=== PATIENT | female | born 2000 | race Caucasian/White ===

== ENCOUNTER 2023-07-07 10:25 | Emergency (ER) | payer OTHER, BC, SELFPAY ==
[2023-07-07 10:26] VITALS: BP 118/76
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
[2023-07-07] MEDS: TYLENOL 650 MG PO (11:18)
[2023-07-07 11:34] LABS: HCG, Urine Qualitative Screen Negative
[2023-07-07 14:18] VITALS: BP 121/78
== END 2023-07-07 14:28 | disposition home or self-care (01) ==
LOC: EMR 10:25
PROVIDERS: Physician Assistant; EMERGENCY PHYSICIAN Emergency Medicine; FAMILY PHYSICIAN Family Medicine
DX: S16.1XXA Strain of muscle, fascia and tendon at neck level, initial encounter (principal); V43.52XA Car driver injured in collision with other type car in traffic accident, initial encounter; Z87.891 Personal history of nicotine dependence
CPT/HCPCS: 99284; 70450; 72125; 81025

== ENCOUNTER 2023-11-13 08:20 | Emergency (ER) | payer BC, OTHER, SELFPAY ==
[2023-11-13 08:23] VITALS: BP 120/71
--- NOTE | 2023-11-13 08:50 | ED.MUSCINJ ---
HPI-Injury
<Krista Pedraza MD, Resident - Last Filed: 11/13/23 09:34>
General
Chief Complaint: Musculo-Skeletal Complaint
Time Seen by Provider: 11/13/23 08:30
History of Present Illness-Injury
Is this injury a work related problem?: No
Is pt an associate of [facility]/[place]?: No
Initial Injury comments:
23-year-old female presented to the ED following a fallt. The patient reports that she was walking down the steps when she fell landing on right arm , which was extended and partially flexed. She experiencing pain in her right shoulder. On
physical examination there is pain with abduction of the right at 90 degrees and pain with flexion of the right arm. Despite the pain she has full range of motion with full extension and flexion of the wrist. She denies any weakness.
Past History
<Krista Pedraza MD, Resident - Last Filed: 11/13/23 09:34>
Past History
ED Past Medical History: Psychiatric (Anxiety/depression)
ED Past Surgical History: Tonsilectomy
Social History
Tobacco: Former smoker
Alcohol: Occasional
Drug: Marijuana
Personal: Single
Living: with family
Musculoskeletal Injury Exam
<Krista Pedraza MD, Resident - Last Filed: 11/13/23 09:34>
Musculoskeletal Injury Exam
Right Shoulder:
Pain with Movement?: Moderate
Tender to palpation?: None
Soft tissue swelling?: None
External deformity and angulation?: None
Joint effusion?: None
Contusion?: None
Hematoma-local bleeding into tissue?: None
Strain- Sprain- Tear (Connective tissue injury)?: Moderate
Crepitus with movement?: No
Joint instability?: No
Malalignment/deformity?: No
Range of motion: Limited ( limited range of motion and pain with abduction of the right at 90 degrees, pain with flexion of the right arm. Full range of motion with wrist extension and flexion)
Distal skin color and temperature: normal-warm & good color
Capillary Refill: normal
Normal distal neurovascular exam?: Yes
Phy Exam
<Krista Pedraza MD, Resident - Last Filed: 11/13/23 09:34>
Physical Exam
Physical Exam:
23 year old female, comfortable, conversant.
Musculoskeletal Exam
Musculoskeletal Exam: neuro vasc intact and other (Inspection -no warmth, erythema, ecchymosis. No point tenderness on palpation. Range of motion pain with right shoulder shrugging,)
Injury Course
<Krista Pedraza MD, Resident - Last Filed: 11/13/23 09:34>
Orders/Labs/Results
Orders:
Orders
11/13/23 08:26
Humerus, Right 2 Views [CR Humerus - Right Min 2 View*] Urgent
Comment:
Reason For Exam: fall, pain
Shoulder, Right, Trauma [CR Shoulder, Trauma - Right] Urgent
Comment:
Reason For Exam: fall, pain
11/13/23 09:02
Ibuprofen [Motrin] 600 mg PO NOW STA
<Jessica Morin MD - Last Filed: 11/13/23 09:40>
Orders/Labs/Results
Orders:
Orders
11/13/23 08:26
Humerus, Right 2 Views [CR Humerus - Right Min 2 View*] Urgent
Comment:
Reason For Exam: fall, pain
Shoulder, Right, Trauma [CR Shoulder, Trauma - Right] Urgent
Comment:
Reason For Exam: fall, pain
11/13/23 09:02
Ibuprofen [Motrin] 600 mg PO NOW STA
<Krista Pedraza MD, Resident - Last Filed: 07/22/24 09:34>
*Critical Care Note
Total Time (30-74mins, 75-104mins- exclusive of procedures): Not Applicable
<Jessica Morin MD - Last Filed: 11/13/23 09:40>
*Radiology
Radiology exam reviewed: preliminary read by ED provider (Right shoulder and humeral x-rays reviewed by me. No acute disease seen. No fracture seen. No dislocation)
*Pulse Oximetry
Patient hypoxic: no
*EKG
Interpreted by ED Provider?: NA
*Customer Contact Representative Interpretation
Rate: Customer Contact Representative- N/A
Data Reviewed
Source: patient and family
<Jessica Morin MD - Last Filed: 11/13/23 09:40>
Patient Management
Social determinants of health affecting care: Living situation and Strong social support
<Krista Pedraza MD, Resident - Last Filed: 11/13/23 09:34>
Update Note
Update Note:
23-year-old female presented to ED following a fall right. X-ray of the right humerus and shoulder shows no fractures no dislocations. Suspect ligament strain/ rotator cuff tendinopathy. The plan is to discharge the patient with ibuprofen and
cyclobenzaprine. She is advised to avoid lifting heavy weights or objects, rest and apply ice compression. She should follow-up with her primary care physician in 3 days. The patient also requested a leave from note for 2 days.
ED Attending Note
<Krista Pedraza MD, Resident - Last Filed: 11/13/23 09:34>
-
Portions of this chart may have been created with voice recognition software.� Occasional wrong word or��sound alike� substitutions may have occurred due to the inherent limitations of voice recognition software.
<Jessica Morin MD - Last Filed: 11/13/23 09:40>
ED Attending Note
Patient seen and examined by attending physician: Yes
I performed a history and physical exam of patient and discussed management with resident, I reviewed resident's note and agree with documented findings and plan of care.: Yes
ED Attending Note:
Patient's face and head are atraumatic. Nontender C-spine. Strong pulses and excellent cap refill in right upper extremity.
Discharge Plan
Departure
Patient Disposition: Home (Routine Discharge)
Date of Disposition: 11/13/23
Time of Disposition: 09:27
Patient with high blood pressure during this ER visit?: No
Discharge Problem:
Strain of ligament
Instructions: Muscle Strain (DC)
Prescriptions:
New
ibuprofen 600 mg tablet
600 mg PO TID 7 Days Qty: 21 0RF
cyclobenzaprine 10 mg tablet
10 mg PO HS 10 Days Qty: 10 0RF
No Action
fluoxetine 20 MG capsule
20 mg PO DAILY
norgestimate-ethinyl estradiol [Tri-Lo-Dyan] 1 EACH tablet
1 ea PO DAILY
lisdexamfetamine [Vyvanse] 30 MG capsule
30 mg PO DAILY
pantoprazole 40 MG tablet,delayed release (DR/EC)
40 mg PO DAILY Qty: 30 0RF
ondansetron 4 MG tablet,disintegrating
4 mg PO TIDPRN PRN (Reason: nausea) Qty: 12 0RF
pantoprazole 40 mg tablet,delayed release (DR/EC)
40 mg PO DAILY Qty: 30 0RF
Referrals:
Jaimie Jones, DO [Family Provider] - Follow up in 2-3 days
Stand Alone Forms: Return to Work
Interventions
Interventions:
*Risk Screen - Suicide Last Done: 11/13/23 08:23
*General Assessment Last Done: 11/13/23 08:23
*Neglect/Abuse Screening Last Done: 11/13/23 08:23
ED-Musculoskeletal Assessment Last Done: 11/13/23 09:13
Discharge Date and Time
Print Language: WOLOF
[2023-11-13] MEDS: MOTRIN 600 MG PO (09:11)
[2023-11-13 09:34] VITALS: BP 120/61
== END 2023-11-13 09:41 | disposition home or self-care (01) ==
LOC: EMR 08:20
PROVIDERS: EMERGENCY PHYSICIAN Emergency Medicine; FAMILY PHYSICIAN Family Medicine
DX: S46.911A Strain of unspecified muscle, fascia and tendon at shoulder and upper arm level, right arm, initial encounter (principal); W10.9XXA Fall (on) (from) unspecified stairs and steps, initial encounter; F41.8 Other specified anxiety disorders; Y93.01 Activity, walking, marching and hiking; Z87.891 Personal history of nicotine dependence
CPT/HCPCS: 99283; 73030; 73060

== ENCOUNTER → 2024-03-07 07:51 | Outpatient (REF) | payer OTHER, SELFPAY | LOC: HWRAD 07:51 | PROVIDERS: ATTENDING PHYSICIAN Otolaryngology; FAMILY PHYSICIAN Internal Medicine | DX: R51.9 Headache, unspecified (principal) | CPT/HCPCS: 70486 ==

== ENCOUNTER 2024-03-28 22:55 | Emergency (ER) | payer OTHER, SELFPAY ==
[2024-03-28 23:15] VITALS: BP 108/81
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
[2024-03-29 01:03] VITALS: BP 104/78
== END 2024-03-29 01:13 | disposition home or self-care (01) ==
LOC: EMR 22:55
PROVIDERS: EMERGENCY PHYSICIAN Student in an Organized Health Care Education/Training Program; FAMILY PHYSICIAN Internal Medicine
DX: S63.502A Unspecified sprain of left wrist, initial encounter (principal); S63.92XA Sprain of unspecified part of left wrist and hand, initial encounter; W03.XXXA Other fall on same level due to collision with another person, initial encounter; Z87.891 Personal history of nicotine dependence
CPT/HCPCS: 29125; 99283; 73110; 73130

== ENCOUNTER 2024-06-27 12:58 | Emergency (ER) | payer BC, OTHER, SELFPAY ==
[2024-06-27 13:05] VITALS: BP 153/72
[2024-06-27 13:28] LABS: % Basophils 0.5 % (0-2); % Eosinophils 0.3 % (0-6); % Immature Granulocytes 0.4 % (0-0.5); % Lymphocytes 23.8 % (20.5-51.1); % Monocytes 5.2 % (1.7-9.3); % Neutrophils 69.8 % (42.2-75.2); Absolute Basophils 0.1 10^3/uL (0-0.2); Absolute Lymphocytes 2.4 10^3/uL (1.2-3.4); Absolute Monocytes 0.5 10^3/uL (0.1-0.6); Absolute Neutrophils 7.2 10^3/uL (1.4-6.5); Hematocrit 38.3 % (37.0-47.0); Hemoglobin 13.5 g/dL (12.0-16.0); Mean Corp Hgb Conc. 35.2 g/dL (33.0-37.0); Mean Corpuscular Hgb 28.8 pg (27.0-31.0); Mean Corpuscular Volume 81.7 fL (81.0-99.0); Nucleated Red Blood Cells % 0 %; Platelet Count 264 10^3/uL (130-400); Red Blood Cell Count 4.69 10^6/uL (4.20-5.40); Red Cell Dist. Width 11.7 % (11.5-14.5); Urine Albumin Negative (Neg - Trace); Urine Bilirubin Negative (Negative); Urine Character Clear (Clear); Urine Color Yellow; Urine Glucose Negative (Negative); Urine Ketone Negative (Negative); Urine Leukocyte Negative (Negative); Urine Nitrite Negative (Negative); Urine Occult Blood Negative (Negative); Urine Urobilinogen Negative (Neg - 1+); Urine pH 6.5 (5.0-9.0); White Blood Cell Count 10.3 10^3/uL (4.8-10.8)
[2024-06-27 13:42] LABS: ALT (SGPT) 25 U/L (0-35); AST (SGOT) 24 U/L (14-36); Albumin 4.3 g/dl (3.5-5.0); Alkaline Phosphatase 114 U/L (38-126); Blood Urea Nitrogen 9 mg/dl (7-17); Calcium 9.5 mg/dl (8.4-10.2); Carbon Dioxide 20 mmol/L (22-30); Chloride 104 mmol/L (98-107); Glucose 96 mg/dl (70-99); Potassium 4.2 mmol/L (3.5-5.1); Sodium 135 mmol/L (135-145); Total Bilirubin 0.5 mg/dl (0.2-1.3); Total Protein 6.9 g/dl (6.3-8.2); eGFR > 60.00
[2024-06-27 14:06] LABS: HCG, Serum Qualitative Screen Negative
[2024-06-27 14:40] VITALS: BMI 36.7
--- NOTE | 2024-06-27 15:19 | ED.GENMED ---
History of Present Illness
<Anjali Flores PA-C - Last Filed: 06/27/24 18:53>
General
Chief Complaint: Fever
Source: patient
Exam Limitations: none
Time Seen by Provider: 06/27/24 14:32
History of Present Illness
History of Present Illness:
23yoF with a history of depression and ADHD presenting for evaluation of a fever. Symptoms initially started about 2 weeks ago with dysuria, vaginal discharge, and itching. She was seen by her paediatric thoracic physician on 06/17/2024 for her symptoms. She had
vaginal swabs including a genital culture, yeast culture, and GC/chlamydia testing which were all negative. Urine culture grew out pansensitive E. coli. She was started on Macrobid 3 days ago. She was having some right flank discomfort 3 days ago
before her antibiotics were started. Her right flank pain recurred today and she also spiked a fever of 102.7 via forehead thermometer. She was nauseous earlier but denies any vomiting. She denies any vaginal discharge currently.
Past History
<Anjali Flores PA-C - Last Filed: 06/27/24 18:53>
Past History
ED Past Medical History: Psychiatric (Anxiety/depression)
ED Past Surgical History: Tonsilectomy
Social History
Tobacco: Former smoker
Alcohol: Occasional
Drug: Marijuana
Personal: Single
Living: with family
Phy Exam
<Anjali Flores PA-C - Last Filed: 06/27/24 18:53>
General Physical Exam
General Presentation: well appearing and no apparent distress
General age: appears stated age
General Skin: warm and dry
General Habitus: normal
General Mental: alert
ENT Exam
ENT Exam: normocephalic
Cardiovascular Exam
Cardiovascular Exam: tachycardia
Pulmonary Exam
Pulmonary Exam: lungs clear, no respiratory distress, no rales, no crackles and no rhonchi
Gastrointestinal Exam
Gastrointestinal Exam: soft, non distended and other (+Mild tenderness in suprapubic region. +R CVA tenderness. )
Neurological Exam
Neurological Exam: alert
[place] Coma Scale
Eye Opening: Spontaneous
Verbal Response: Oriented
Motor Response: Obeys Commands
GCS Total Score: 15
Skin Exam
Skin Exam: normal color and warm/dry
Psychiatric Exam
Psychiatric Exam: normal mood/affect
<Rohit Tran PA-C - Last Filed: 06/27/24 17:40>
[place] Coma Scale
GCS Total Score: 15
Course
<Anjali Flores PA-C - Last Filed: 06/27/24 18:53>
Orders/Labs/Results
Orders:
Orders
06/27/24 13:09
Test Result ONCE
06/27/24 13:15
Complete Blood Count/With Diff Urgent
Comprehensive Metabolic Panel Urgent
HCG, Serum Qualitative Screen Urgent
Urinalysis Reflex To Culture Urgent
Date Specimen was Collected: 06/27/24
Time Specimen was Collected: 13:09
06/27/24 15:17
0.9% Sodium Chloride 1000 ml [Nss] 1,000 ml IV BOLUS
06/27/24 15:35
COVID-19 Antigen Urgent
Source: Nasal Swab
Influenza A+B Rapid Molecular Urgent
SANDI Source: Nasal Swab
Specimen Description:
06/27/24 16:49
CT Abd/pelvis W/wo Iv Cont Urgent
Comment: concern for renal stone/pyelonephritis
Reason For Exam: right flank pain
Abnormal Lab Results
06/27/24
13:15
Absolute Neuts (auto) 7.2 H 10^3/uL
(1.4-6.5)
Carbon Dioxide 20 L mmol/L
(22-30)
06/27/24 13:15
06/27/24 13:15
Vital Signs
Initial and Last Documented VS:
Initial Vital Signs
Temp Pulse Resp BP Pulse Ox
98.2 F 117 16 153/72 98
06/27/24 13:05 06/27/24 13:05 06/27/24 13:05 06/27/24 13:05 06/27/24 13:05
Last Documented Vital Signs
Temp Pulse Resp BP Pulse Ox
98.1 F 117 16 153/72 98
06/27/24 14:39 06/27/24 13:05 06/27/24 13:05 06/27/24 13:05 06/27/24 13:05
<Rohit Tran PA-C - Last Filed: 06/27/24 17:40>
Orders/Labs/Results
Orders:
Orders
06/27/24 13:09
Test Result ONCE
06/27/24 13:15
Complete Blood Count/With Diff Urgent
Comprehensive Metabolic Panel Urgent
HCG, Serum Qualitative Screen Urgent
Urinalysis Reflex To Culture Urgent
Date Specimen was Collected: 06/27/24
Time Specimen was Collected: 13:09
06/27/24 15:17
0.9% Sodium Chloride 1000 ml [Nss] 1,000 ml IV BOLUS
06/27/24 15:35
COVID-19 Antigen Urgent
Source: Nasal Swab
Influenza A+B Rapid Molecular Urgent
SANDI Source: Nasal Swab
Specimen Description:
06/27/24 16:49
CT Abd/pelvis W/wo Iv Cont Urgent
Comment: concern for renal stone/pyelonephritis
Reason For Exam: right flank pain
Abnormal Lab Results
06/27/24
13:15
Absolute Neuts (auto) 7.2 H 10^3/uL
(1.4-6.5)
Carbon Dioxide 20 L mmol/L
(22-30)
06/27/24 13:15
06/27/24 13:15
Vital Signs
Initial and Last Documented VS:
Initial Vital Signs
Temp Pulse Resp BP Pulse Ox
98.2 F 117 16 153/72 98
06/27/24 13:05 06/27/24 13:05 06/27/24 13:05 06/27/24 13:05 06/27/24 13:05
Last Documented Vital Signs
Temp Pulse Resp BP Pulse Ox
98.1 F 117 16 153/72 98
06/27/24 14:39 06/27/24 13:05 06/27/24 13:05 06/27/24 13:05 06/27/24 13:05
<Anjali Flores PA-C - Last Filed: 06/27/24 18:53>
MDM/Problems Addressed
Differential Diagnosis Includes:
23yoF here with R flank pain and fever of 102.7 at home. Currently on day 3/ of Macrobid for a UTI. Urine culture from last week grew out pansensitive E.coli (reviewed results on patient's phone). Temp 98.2 on arrival and she did not take any
antipyretics prior to arrival. HR 117. She is well appearing in no distress. +R CVA tenderness on exam. Differential diagnosis includes but is not limited to: UTI, pyelonephritis, kidney stone
Initial ED plan: Labs and UA obtained in triage. White count and renal function normal. UA is normal although results may be skewed as she has been on the abx for a few days. Will check COVID/flu swab and CT abdomen. IV fluid bolus.
Final assessment: Viral testing negative. No hydronephrosis or stones seen on my review of CT. Patient signed out to Archie Tran PA-C prior to CT results. Will plan to switch to an antibiotic that will cover pyelonephritis.
<Rohit Tran PA-C - Last Filed: 06/27/24 17:40>
*Critical Care Note
Total Time (30-74mins, 75-104mins- exclusive of procedures): Not Applicable
<Rohit Tran PA-C - Last Filed: 06/27/24 17:40>
Update Note
Update Note:
1705: Assumed care of pt from Anjali Flores PA-C pending CT report.
1735: Reviewed CT, unremarkable. Will switch from nitrofurantoin to cefdinir for more appropriate pyelo coverage. Pt in agreement w/ plan
ED Attending Note
<Anjali Flores PA-C - Last Filed: 06/27/24 18:53>
-
Portions of this chart may have been created with voice recognition software.� Occasional wrong word or��sound alike� substitutions may have occurred due to the inherent limitations of voice recognition software.
Discharge Plan
Departure
Patient Disposition: Home (Routine Discharge)
Date of Disposition: 06/27/24
Time of Disposition: 17:38
Patient with high blood pressure during this ER visit?: No
Discharge Problem:
Pyelonephritis
Instructions: Urinary tract infection in adults - ED discharge instructions
Prescriptions:
New
cefdinir 300 mg capsule
300 mg PO Q12H Qty: 14 0RF
No Action
fluoxetine 20 MG capsule
20 mg PO DAILY
norgestimate-ethinyl estradiol [Tri-Lo-Dyan] 1 EACH tablet
1 ea PO DAILY
lisdexamfetamine [Vyvanse] 30 MG capsule
30 mg PO DAILY
pantoprazole 40 MG tablet,delayed release (DR/EC)
40 mg PO DAILY Qty: 30 0RF
ondansetron 4 MG tablet,disintegrating
4 mg PO TIDPRN PRN (Reason: nausea) Qty: 12 0RF
pantoprazole 40 mg tablet,delayed release (DR/EC)
40 mg PO DAILY Qty: 30 0RF
ibuprofen 600 mg tablet
600 mg PO TID 7 Days Qty: 21 0RF
cyclobenzaprine 10 mg tablet
10 mg PO HS 10 Days Qty: 10 0RF
Referrals:
Jaimie Jones, DO [Family Provider] -
Activity Restrictions/Additional Instructions:
Stop the nitrofurantoin and start the cefdinir
Interventions
Interventions:
*Risk Screen - Suicide Last Done: 06/27/24 13:08
*General Assessment Last Done: 06/27/24 14:41
*Neglect/Abuse Screening Last Done: 06/27/24 13:08
*ED- Fall Risk Assessment Last Done: 06/27/24 14:40
*ED COVID-19 Vaccine History Last Done: 06/27/24 14:40
*Nursing Disposition Last Done: 06/27/24 18:27
ED- Neurological Assessment Last Done: 06/27/24 14:43
ED-Skin Assessment Last Done: 06/27/24 14:43
Discharge Date and Time
Discharge Date/Time: 06/27/24 18:34
Print Language: BOLIVIAN
[2024-06-27 16:02] LABS: COVID-19 Antigen Negative (Negative)
[2024-06-27] MEDS: NSS 1000 IV (16:04)
== END 2024-06-27 18:34 | disposition home or self-care (01) ==
LOC: EMR 12:58
PROVIDERS: Physician Assistant; EMERGENCY PHYSICIAN Emergency Medicine; FAMILY PHYSICIAN Family Medicine
DX: N12 Tubulo-interstitial nephritis, not specified as acute or chronic (principal); F90.9 Attention-deficit hyperactivity disorder, unspecified type; F41.8 Other specified anxiety disorders; Z87.891 Personal history of nicotine dependence
CPT/HCPCS: 99284; 74178; 80053; 81003; 84703; 85025; 87502; 87811; Q9967

== ENCOUNTER 2024-07-04 23:46 | Inpatient (IN) | payer BC, OTHER, SELFPAY ==
[2024-07-04 16:37] VITALS: BP 136/89
[2024-07-04 17:17] LABS: % Basophils 0.4 % (0-2); % Eosinophils 0.3 % (0-6); % Immature Granulocytes 0.3 % (0-0.5); % Lymphocytes 21.7 % (20.5-51.1); % Neutrophils 72.3 % (42.2-75.2); Absolute Basophils 0.1 10^3/uL (0-0.2); Absolute Eosinophils 0.1 10^3/uL (0-0.7); Absolute Immature Granulocytes 0.1 10^3/uL (0-0.05); Absolute Lymphocytes 3.2 10^3/uL (1.2-3.4); Absolute Monocytes 0.7 10^3/uL (0.1-0.6); Absolute Neutrophils 10.7 10^3/uL (1.4-6.5); Hematocrit 39.9 % (37.0-47.0); Hemoglobin 14.1 g/dL (12.0-16.0); Mean Corp Hgb Conc. 35.3 g/dL (33.0-37.0); Mean Corpuscular Hgb 28.6 pg (27.0-31.0); Mean Corpuscular Volume 80.9 fL (81.0-99.0); Mean Platelet Volume 9.2 fL (7.4-10.4); Nucleated Red Blood Cells % 0 %; Platelet Count 332 10^3/uL (130-400); Red Blood Cell Count 4.93 10^6/uL (4.20-5.40); Red Cell Dist. Width 11.9 % (11.5-14.5); White Blood Cell Count 14.7 10^3/uL (4.8-10.8)
[2024-07-04 17:17] LABS: Urine Albumin Negative (Neg - Trace); Urine Bilirubin Negative (Negative); Urine Character Clear (Clear); Urine Color Yellow; Urine Glucose Negative (Negative); Urine Ketone Negative (Negative); Urine Leukocyte Negative (Negative); Urine Nitrite Negative (Negative); Urine Occult Blood Negative (Negative); Urine Urobilinogen Negative (Neg - 1+); Urine pH 6.5 (5.0-9.0)
[2024-07-04 17:27] LABS: HCG, Serum Qualitative Screen Negative
[2024-07-04 17:27] LABS: Lactic Acid 1.2 mmol/L (0.7-2.0)
[2024-07-04 17:32] LABS: ALT (SGPT) 19 U/L (0-35); AST (SGOT) 20 U/L (14-36); Albumin 4.9 g/dl (3.5-5.0); Alkaline Phosphatase 111 U/L (38-126); Blood Urea Nitrogen 9 mg/dl (7-17); Calcium 9.8 mg/dl (8.4-10.2); Carbon Dioxide 23 mmol/L (22-30); Chloride 101 mmol/L (98-107); Glucose 81 mg/dl (70-99); Potassium 4.2 mmol/L (3.5-5.1); Sodium 136 mmol/L (135-145); Total Bilirubin 0.6 mg/dl (0.2-1.3); Total Protein 7.4 g/dl (6.3-8.2); eGFR > 60.00
[2024-07-04] MEDS: TORADOL 15 MG IV (20:12)
[2024-07-04] MEDS: NSS 1000 IV (20:12)
--- NOTE | 2024-07-04 22:40 | ED.GENMED ---
History of Present Illness
General
Chief Complaint: Flank Pain
Source: patient
Exam Limitations: none
Time Seen by Provider: 07/04/24 17:47
Nursing documentation reviewed up to this point in time: agreed with
History of Present Illness
History of Present Illness:
Patient presents to ED secondary to recurrent right flank/back pain, along with fever and 1 vomiting episode this afternoon. Patient was seen in ED 1 week ago and was treated for pyelonephritis and started on Omnicef, which was completed yesterday.
Patient states that while she was on antibiotics, she did feel better. Of note, prior to presentation ED 1 week ago, patient was evaluated by her employment adjudicator where she received normal pelvic exam but urinalysis did reveal infection and was
started on Macrobid x 3 days. Denies abdominal pain. Denies diarrhea. Denies trauma. Denies loss of sensation or weakness. Patient does also report mild shortness of breath.
Past History
Past History
ED Past Medical History: Psychiatric (Anxiety/depression)
ED Past Surgical History: Tonsilectomy
Social History
Tobacco: Former smoker
Alcohol: Occasional
Drug: Marijuana
Personal: Single
Living: with family
Review of Systems
Review of Systems
Allergies reviewed?: Yes
All Other Systems: ROS reviewed and negative except as documented in HPI and ROS
Constitutional: Reports fever and chills
EENT: Reports no symptoms
Respiratory: Reports trouble breathing
Cardiac: Reports no symptoms
ABD/GI: Reports nausea and vomiting; Denies abdominal pain
: Reports flank pain
Musculoskeletal: Reports back pain
Skin: Reports no symptoms
Neurological: Reports no symptoms
Phy Exam
Physical Exam
Physical Exam:
Physical Exam
General: mild distress, not acutely ill. afebrile. tachycardic
Head: nc/at. eomi
Neck: supple. normal range of motion
Heart: s1/s2 regular rhythm, tachycardic, no murmur.
Lungs: no acute respiratory distress. clear bilaterally
Abdomen: normal bowel sounds. not tender. mild right CVA tenderness to palpation.
Neuro: alert and oriented x 3. no focal neurological deficits
Skin: no rash
Psychiatric: well kept. interactive and cooperative
Extremities: no edema. no calf tenderness.
Course
Orders/Labs/Results
Orders:
Orders
07/04/24 16:41
Electrocardiogram (*1) Urgent
Reason for Study: Shortness of Breath
EKG- Treatment ONCE
Test Result ONCE
07/04/24 16:59
Lactic Acid Urgent
Urinalysis Reflex To Culture Urgent
Date Specimen was Collected: 07/04/24
Time Specimen was Collected: 16:41
Blood Culture Urgent
SANDI Source: Blood/Venous
Specimen Description:
Date Specimen was Collected: 07/04/24
Time Specimen was Collected: 16:41
Urine Culture Urgent
SANDI Source: U
Specimen Description:
Date Specimen was Collected: 07/04/24
Time Specimen was Collected: 16:41
07/04/24 17:00
Complete Blood Count/With Diff Urgent
Comprehensive Metabolic Panel Urgent
HCG, Serum Qualitative Screen Urgent
07/04/24 19:36
0.9% Sodium Chloride 1000 ml [Nss] 1,000 ml IV BOLUS
Ketorolac [Toradol] 15 mg IV NOW STA
07/04/24 19:49
D-Dimer Urgent
Blood Culture Urgent
SANDI Source: Blood/Venous
Specimen Description:
07/04/24 22:36
CefTRIAXone [Rocephin] 1,000 mg IV NOW STA
07/04/24 23:46
Admit/Transfer Patient As Directed
Co-Sign Provider:
Level of Care: Inpatient admission
Assign to:: Medical/Surgical
Physician / Group: Dianne Romero
Diagnosis: sepsis, Pyelonephritis
Reason for Hospitalization: sepsis, Pyelonephritis
Expected length of stay greater than two midnights?: Yes
ELOS- Estimated Length of Stay in days: 3
I certify the patient meets the requirements for IP care: Yes
PRN Pain Medication Management As Directed
May give lesser potent ordered pain med per pt: Yes
preference::
Protocol:: Medication orders for pain may be administered in a
manner that supports deferring to patient preference
when the pt is:
- Requesting an ordered lesser potent pain medication.
Least to most potent pain medications are defined
as: acetaminophen < NSAID < tramadol < opioids
(morphine, oxycodone, hydromorphone).
- Requesting a lesser dose of the same medication IF
ORDERED.
- Requesting a less intrusive route of administration
if both routes are prescribed by the provider (PO <
IV).
07/04/24 23:48
Code Status As Directed
Resuscitation Status: Full Code
07/05/24 01:51
Acetaminophen [Tylenol] 650 mg PO Q4HPRN PRN
07/05/24 01:51
Activity As Directed
Activity Level: Ambulate
Chart Request [Obtain Records] As Directed
Dates of Information to be Released: 06/24/2024
Type of Information Requested: Lab Results
Obtain Records from: [facility]
Vital Signs As Directed
Frequency: Per unit guidelines
Weight As Directed
Frequency: Once
Renal & Bladder US [US Renal With Bladder] Routine
Comment:
Reason For Exam: Pyelonephritis, failed outpatient ABX
DX Deep Vein Thrombosis Video Routine
07/05/24 07:58
Basic Metabolic Panel IN AM
Complete Blood Count/No Diff IN AM
07/05/24 08:00
Fluoxetine HCl [Prozac] 60 mg PO DAILY
norgestimate-ethinyl estradiol [Tri-Lo-Dyan] See Dose Instructions PO DAILY
07/05/24 18:00
Enoxaparin Sodium [Lovenox] 40 mg SC QPM
07/06/24 00:00
CefTRIAXone [Rocephin] 1,000 mg IV Q24H
Abnormal Lab Results
07/04/24
17:00
WBC 14.7 H 10^3/uL
(4.8-10.8)
MCV 80.9 L fL
(81.0-99.0)
Abs Immat Gran (auto) 0.1 H 10^3/uL
(0-0.05)
Absolute Neuts (auto) 10.7 H 10^3/uL
(1.4-6.5)
Absolute Monos (auto) 0.7 H 10^3/uL
(0.1-0.6)
07/04/24 17:00
07/04/24 17:00
Vital Signs
Initial and Last Documented VS:
Initial Vital Signs
Temp Pulse Resp BP Pulse Ox
98.5 F 124 18 136/89 97
07/04/24 16:37 07/04/24 16:37 07/04/24 16:37 07/04/24 16:37 07/04/24 16:37
Last Documented Vital Signs
Temp Pulse Resp BP Pulse Ox
98.1 F 75 16 110/62 98
07/06/24 07:40 07/06/24 07:40 07/06/24 07:40 07/06/24 07:40 07/06/24 07:40
MDM/Problems Addressed
MDM/Problems Addressed:
History, exam, along with blood work as well as vital signs, concerning for sepsis, likely secondary to incompletely treated pyelonephritis, with concern for potential development of bacteremia. Urinalysis today likely difficult to interpret, as
patient has completed 2 antibiotics recently. Rocephin given.
Blood culture pending. Urine culture pending.
*Critical Care Note
Total Time (30-74mins, 75-104mins- exclusive of procedures): Not Applicable
ED Attending Note
-
Portions of this chart may have been created with voice recognition software.� Occasional wrong word or��sound alike� substitutions may have occurred due to the inherent limitations of voice recognition software.
Discharge Plan
Departure
Patient Disposition: Admit
Date of Disposition: 07/04/24
Time of Disposition: 22:45
Admit to: Med/Surg
Presentation/result/management discussed w/ accepting MD/DO: Hospitalist
Discharge Problem:
Sepsis, Pyelonephritis
Interventions
Interventions:
*Risk Screen - Suicide Last Done: 07/05/24 02:51
*General Assessment Last Done: 07/04/24 16:37
*Neglect/Abuse Screening Last Done: 07/04/24 16:37
*ED- Fall Risk Assessment Last Done: 07/04/24 20:21
*ED COVID-19 Vaccine History Last Done: 07/05/24 02:43
*Nursing Disposition Last Done: 07/05/24 01:36
[place]-[facility]-Mhietbybzz Assessment Last Done: 07/04/24 20:14
ED-Female Genitourinary Assessment Last Done: 07/04/24 20:14
Discharge Date and Time
Discharge Date/Time: 07/05/24 01:36
[2024-07-04] MEDS: ROCEPHIN 1000 MG IV (23:07)
--- NOTE | 2024-07-04 23:14 | HPS.HSE ---
Family Physician
-
Family Physician: Jaimie Jones
Chief Complaint
-
right flank/back pain
History of Present Illness
Patient is a 23-year-old female with past medical history significant for anxiety/depression who presented to [facility] ED for evaluation of right flank/back pain. Patient was in ED on 06/27/2024 for right back and flank pain, diagnosed
with paranephritis and treated with Omnicef which was completed yesterday. Prior to ED visit she was seen at caisson worker office and prescribed Macrobid for UTI, she stopped Macrobid early r/t paranephritis diagnosis and new antibiotic. Patient states she
was feeling better while on antibiotics but had a return of right flank and back pain today. She states she did have a fever prior to coming for evaluation today with associated nausea and vomiting. She denies any chills, cough, chest pain,
constipation, diarrhea or urinary symptoms.
Medical History
Past Medical History
Past Medical History: Reports Other
Additional Past Medical History:
anxiety/depression
ADD
Past Surgical History: Reports Other
Additional Past Surgical History:
Ear Tubes
Deviated septum Repair
Tonsillectomy
Social History
Tobacco: Former Smoker (quit 1 year ago )
Alcohol: Occasional
Drug: Marijuana (smokes medical marijuana occasionally )
Personal: Single
Living: With Family
Employment: Employed
Family History
Family History: Other (Father: MDS)
Allergies / Home Medications
Allergies reflects when Allergies were last updated in [employer].
Home Medications with original date entered in [employer]
Allergy/Medication List:
Allergies
Allergy/AdvReac Type Severity Reaction Status Date / Time
hydroxychloroquine AdvReac Mild Nausea / Verified 06/27/24 13:08
Vomiting
Home Medications
fluoxetine 20 mg capsule 60 mg PO DAILY 02/07/21
lisdexamfetamine 30 mg capsule (Vyvanse) 40 mg PO DAILY 02/07/21
norgestimate 0.18 mg/0.215 mg/0.25 mg-ethinyl estradiol 25 mcg tablet (Tri-Lo-Dyan) 1 ea PO DAILY 02/07/21
Review of Systems
-
History Source: Patient
Constitutional: Reports Fever
EENT: Reports No Symptoms
Respiratory: Reports No Symptoms
Cardiac: Reports No Symptoms
Abdomen/GI: Reports Nausea and Vomiting
: Reports Flank Pain
Musculoskeletal: Reports No Symptoms
Skin: Reports No Symptoms
Neurological: Reports No Symptoms
Endocrine: Reports No Symptoms
Hematologic/Lymphatic: Reports No Symptoms
Psych: Reports No Symptoms
Physical Exam
Vital Signs
Vital Signs
Temp Pulse Resp BP Pulse Ox
98.5 F 82 20 136/89 99
07/04/24 16:37 07/04/24 21:15 07/04/24 21:15 07/04/24 16:37 07/04/24 21:15
Physical Exam
General: Well Developed, Well Nourished, No Apparent Distress, Comfortable and Conversant
HEENT: NormoCephalic, Moist mucous membranes, Atraumatic, [place] Conjunctivae, Nose Appears Normal and Ears Appear Normal
Respiratory: Clear and Non Labored Respirations
Cardiac: S1/S2, Regular Rhythm and Tachycardia; No Murmur, Rub or Gallop
GI: Soft, Non Tender, Non Distended and Normal Bowel Sounds; No Organomegaly
Rectal: Deferred by Provider
Genito-urinary: Deferred by me
Musculoskeletal: No Clubbing, No Cyanosis and No Edema
Skin: IV/Catheter Site; No Rash
Neuro: Awake, Alert and Nonfocal/grossly intact
Psych: Calm and Intact Judgment/Insight
Laboratory Results
-
07/04/24 17:00
07/04/24 17:00
Laboratory Results
Lactic Acid 1.2 mmol/L (0.7-2.0) 07/04/24 16:59
Total Bilirubin 0.6 mg/dl (0.2-1.3) 07/04/24 17:00
AST 20 U/L (14-36) 07/04/24 17:00
ALT 19 U/L (0-35) 07/04/24 17:00
Alkaline Phosphatase 111 U/L (38-126) 07/04/24 17:00
Data Reviewed
-
Lab Data: Labs Reviewed by me (WBC 14.7, )
Impression/Plan
-
IMPRESSION/PLAN:
#sepsis 2/2 pyelonephritis
Patient seen 06/27/2024 in ED treated with Omnicef completed yesterday (07/03/2024)
Patient seen by caisson worker with normal pelvic exam and UA indicated UTI so treated with Macrobid x3 days
WBC 14.7, febrile at home
UA: not indicative of UTI (did complete 2 antibiotics recently)
UA C&S: pending
blood cx: pending
Abd/Pel CT (06/27/2024): No convincing evidence for urinary tract calculi.
There is no CT evidence for pyelonephritis or renal abscess.
Mild fatty infiltration the liver.
Contracted gallbladder with no evidence for calcified gallstones. No evidence for biliary ductal dilation.
- Admit to med/surg
- IV antibiotics
- supportive care
- renal US
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
#anxiety/depression
- continue fluoxetine
#ADD
- continue Vyvanse
Code status: full code
DVT prophylaxis: SCDs
--- NOTE | 2024-07-04 23:28 | W.PN.UPDATE ---
Update Note
Progress Note Update
This is an addendum to H&P written by GUT PULLER Yesi Quan
I saw and examined the patient.
The GUT PULLER's note was reviewed and I agree with the note.
Comment:
Ms. Marian Lopez is a 23 yo woman with hx depression, recent treatment of UTI followed by ER visit 06/27/24 for pyelonephritis (abx changed from Macrobid to Cefdinir) presents to the ER with recurrent flank pain/ back pain, fever and vomiting.
Triage VS: T 98.5, P 124, RR 18, BP 136/89, SpO2 97%
LABS: WBC 14.7, Hg 14.1, PLT 332, Na 136, K+ 4.2, Cl 101, BUN 9, Cr 0.6, Glucose 81, Lactate 1.2, T. Bili 0.6, AST 20, ALT 19, Alk Phos [address] A/P from 06/27/24
IMPRESSION: No convincing evidence for urinary tract calculi.
There is no CT evidence for pyelonephritis or renal abscess.
Mild fatty infiltration the liver.
Contracted gallbladder with no evidence for calcified gallstones. No evidence for biliary ductal dilation.
MAR: IV Ceftriaxone, Toradol IVF
Sepsis - leukocytosis with reported fever at home
Recent treatment UTI followed by treatment for Pyelonephritis
Flank Pain
-UA clear but patient just completed antibiotics with Cefdinir. Her UA was positive prior to starting Macrobid; then was also clear last ER visit. Per patient, her symptoms felt better on Cefdinir. Possible that she has partially treatment pyelo
resulting in clear UA
-will admit to med/surg
-IV Ceftriaxone
-IVF
-request records from outpatient [employer] DEVELOPER to see what first urine culture showed
-renal US
-monitor fever/WBC curve
Depression
-SECONDARY EDUCATION PROFESSOR Fluoxetine
DVT PPx lovenox subQ
FULL CODE
[2024-07-05 02:02] VITALS: BP 113/71
[2024-07-05 07:40] VITALS: BP 107/68
[2024-07-05] MEDS: PROZAC 60 MG PO (08:27)
[2024-07-05 08:29] LABS: Hematocrit 37.3 % (37.0-47.0); Hemoglobin 13.2 g/dL (12.0-16.0); Mean Corp Hgb Conc. 35.4 g/dL (33.0-37.0); Mean Corpuscular Hgb 29.1 pg (27.0-31.0); Mean Corpuscular Volume 82.2 fL (81.0-99.0); Mean Platelet Volume 9.5 fL (7.4-10.4); Platelet Count 269 10^3/uL (130-400); Red Blood Cell Count 4.54 10^6/uL (4.20-5.40); White Blood Cell Count 9.1 10^3/uL (4.8-10.8)
[2024-07-05 09:39] LABS: Blood Urea Nitrogen 7 mg/dl (7-17); Calcium 8.9 mg/dl (8.4-10.2); Carbon Dioxide 19 mmol/L (22-30); Chloride 108 mmol/L (98-107); Glucose 83 mg/dl (70-99); Potassium 4.4 mmol/L (3.5-5.1); Sodium 137 mmol/L (135-145); eGFR > 60.00
--- NOTE | 2024-07-05 12:28 | W.PN.HOSP.TC ---
Today's Communication/Plan
-
monitor vitals
see plan
trial of pyridium
cw abx
follow cx
Assessment / Plan
Assessment / Plan
General: Well Developed, Well Nourished, No Apparent Distress, Comfortable and Conversant
HEENT: NormoCephalic, Moist mucous membranes, Atraumatic, [place] Conjunctivae, Nose Appears Normal and Ears Appear Normal
Respiratory: Clear and Non Labored Respirations
Cardiac: S1/S2, Regular Rhythm and Tachycardia; No Murmur, Rub or Gallop
GI: Soft, Non Tender, Non Distended and Normal Bowel Sounds
Musculoskeletal: No Edema
Skin: IV/Catheter Site; No Rash
Neuro: Awake, Alert and Nonfocal/grossly intact
Psych: Calm and Intact Judgment/Insight
sepsis 2/2 suspected pyelonephritis
Patient seen 06/27/2024 in ED treated with Omnicef completed yesterday (07/03/2024)
Patient seen by oil and gas superintendent with normal pelvic exam and UA indicated UTI so treated with Macrobid x3 days for pansensitive E. coli
WBC 14.7, febrile at home
UA: not indicative of UTI (did complete 2 antibiotics recently)
UA C&S: pending
blood cx: pending
Abd/Pel CT (06/27/2024): No convincing evidence for urinary tract calculi.
There is no CT evidence for pyelonephritis or renal abscess.
Mild fatty infiltration the liver.
Contracted gallbladder with no evidence for calcified gallstones. No evidence for biliary ductal dilation.
- IV antibiotics
- supportive care
- renal US with questionable small debris.
- request LINE LOCATOR records
Per patient she has significant dysuria
trial of Pyridium
anxiety/depression
- continue fluoxetine
ADD
- continue Vyvanse
Code status: full code
DVT prophylaxis: SCDs
Anticipated Discharge: Within 24 hours
Subjective/Interval History
-
Date of Service: July 05, 2024
still has pain on right
Objective Data
-
Labs:
Laboratory Results
07/05/24
07:58
WBC 9.1
Hgb 13.2
Hct 37.3
Plt Count 269
Sodium 137
Potassium 4.4
Chloride 108 H
Carbon Dioxide 19 L
BUN 7
Creatinine 0.6
Glucose 83
Calcium 8.9
Vital Signs:
Vital Signs
Temp Pulse Resp BP Pulse Ox
99 F 84 16 107/68 97
07/05/24 07:40 07/05/24 07:40 07/05/24 07:40 07/05/24 07:40 07/05/24 07:40
[2024-07-05] MEDS: Pyridium 100 MG PO ×2 (13:21→18:44)
[2024-07-05 15:22] VITALS: BP 104/60
[2024-07-05] MEDS: TYLENOL 650 MG PO ×2 (15:51→21:28)
--- NOTE | 2024-07-05 18:09 | CM ---
Met with patient to obtain information for assessment. Patient stated that she lives with her mother and father in a two story home with one step to enter. She is independent with all of her ADLs, personal care, dressing and bathing, She can do
disability counselor, cook, clean and do laundry. She has no DME. She has never had VN or been to a SNF.
She has a prescription plan and uses, [facility] for all of her medications.
Patient's PCP is, Jaimie Jones.
Plan: Case management will continue to follow and assist with discharge planning. Home when cleared.
[2024-07-05 22:59] VITALS: BP 104/57
[2024-07-06] MEDS: STERILE WATER FOR INJECTION 10 ML IV (00:14)
[2024-07-06] MEDS: ROCEPHIN 1000 MG IV (00:14)
[2024-07-06] MEDS: Pyridium 100 MG PO (00:14)
[2024-07-06 07:40] VITALS: BP 110/62
[2024-07-06 08:00] LABS: % Basophils 0.4 % (0-2); % Eosinophils 0.7 % (0-6); % Immature Granulocytes 0.6 % (0-0.5); % Lymphocytes 25.9 % (20.5-51.1); % Monocytes 5.5 % (1.7-9.3); % Neutrophils 66.9 % (42.2-75.2); Absolute Eosinophils 0.1 10^3/uL (0-0.7); Absolute Immature Granulocytes 0.1 10^3/uL (0-0.05); Absolute Lymphocytes 2.1 10^3/uL (1.2-3.4); Absolute Monocytes 0.5 10^3/uL (0.1-0.6); Absolute Neutrophils 5.5 10^3/uL (1.4-6.5); Hematocrit 40.9 % (37.0-47.0); Mean Corp Hgb Conc. 34.2 g/dL (33.0-37.0); Mean Corpuscular Hgb 28.4 pg (27.0-31.0); Nucleated Red Blood Cells % 0 %; Red Blood Cell Count 4.93 10^6/uL (4.20-5.40); White Blood Cell Count 8.2 10^3/uL (4.8-10.8)
[2024-07-06 08:23] LABS: ALT (SGPT) 17 U/L (0-35); AST (SGOT) 20 U/L (14-36); Albumin 4.4 g/dl (3.5-5.0); Alkaline Phosphatase 104 U/L (38-126); Blood Urea Nitrogen 13 mg/dl (7-17); Calcium 9.4 mg/dl (8.4-10.2); Carbon Dioxide 20 mmol/L (22-30); Chloride 104 mmol/L (98-107); Estimated Creatinine Clearance > 125 ml/min; Glucose 86 mg/dl (70-99); Potassium 4.4 mmol/L (3.5-5.1); Sodium 136 mmol/L (135-145); Total Bilirubin 0.6 mg/dl (0.2-1.3); Total Protein 6.8 g/dl (6.3-8.2); eGFR > 60.00
[2024-07-06] MEDS: PROZAC 60 MG PO (09:37)
--- NOTE | 2024-07-06 11:26 | W.PN.HOSP.TC ---
Today's Communication/Plan
-
Monitor vitals
See plan
Switch to p.o. antibiotics on discharge
Time of discharge 36 minutes
Assessment / Plan
Assessment / Plan
General: Well Developed, Well Nourished, No Apparent Distress, Comfortable and Conversant
HEENT: NormoCephalic, Moist mucous membranes, Atraumatic, [place] Conjunctivae
Respiratory: Clear and Non Labored Respirations
Cardiac: S1/S2, Regular Rhythm and Tachycardia; No Murmur, Rub or Gallop
GI: Soft, Non Tender, Non Distended and Normal Bowel Sounds
Musculoskeletal: No Edema
Skin: IV/Catheter Site; No Rash
Neuro: Awake, Alert and Nonfocal/grossly intact
Psych: Calm and Intact Judgment/Insight
sepsis 2/2 suspected pyelonephritis
Patient seen 06/27/2024 in ED treated with Omnicef completed yesterday (07/03/2024)
Patient seen by source water protection specialist with normal pelvic exam and UA indicated UTI so treated with Macrobid x3 days for pansensitive E. coli
WBC 14.7, febrile at home
UA: not indicative of UTI (did complete 2 antibiotics recently)
Urine culture growing coag negative staph, likely contaminant. Blood culture negative so far. Discussed with patient that she needs to follow-up with her primary care physician and gynecology outpatient. Will transition her antibiotics to p.o.
cefdinir for few days
Abd/Pel CT (06/27/2024): No convincing evidence for urinary tract calculi.
There is no CT evidence for pyelonephritis or renal abscess.
Mild fatty infiltration the liver.
Contracted gallbladder with no evidence for calcified gallstones. No evidence for biliary ductal dilation.
Transition to p.o. antibiotic
- supportive care
- renal US with questionable small debris.
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
Per patient she has significant dysuria
trial of Pyridium
anxiety/depression
- continue fluoxetine
ADD
- continue Vyvanse
Code status: full code
DVT prophylaxis: SCDs
Anticipated Discharge: Today
Subjective/Interval History
-
Date of Service: July 06, 2024
denies pain
Objective Data
-
Labs:
Laboratory Results
07/06/24
07:08
WBC 8.2
Hgb 14.0
Hct 40.9
Plt Count
Sodium 136
Potassium 4.4
Chloride 104
Carbon Dioxide 20 L
BUN 13
Creatinine 0.6
Glucose 86
Calcium 9.4
Total Bilirubin 0.6
AST 20
ALT 17
Alkaline Phosphatase 104
Vital Signs:
Vital Signs
Temp Pulse Resp BP Pulse Ox
98.1 F 75 16 110/62 98
07/06/24 07:40 07/06/24 07:40 07/06/24 07:40 07/06/24 07:40 07/06/24 07:40
I&O
07/05/24 07/06/24 07/07/24
06:59 06:59 06:59
Intake Total 1440 / 1440
Balance 1440 / 1440
--- NOTE | 2024-07-06 11:31 | W.DCSUMMARY ---
Discharge Summary
Discharge Data
Date of Admission: 07/05/24
Date of Discharge: 07/06/24
-
Pending Results: Yes
Hospital Course
23-year-old female with past medical history of anxiety, depression, ADD, recent UTI/pyelonephritis came to the hospital with worsening symptoms after antibiotics was weaned off. There was concern of patient having sepsis secondary to suspected
pyelonephritis. She had a recent CT scan which was negative for pyelonephritis. Renal ultrasound was done which showed mild debris which could be consistent with infection. Urinary analysis was negative however patient was on antibiotics prior to
coming to the hospital. Given her symptoms she was treated with IV antibiotic initially which was transitioned to p.o. antibiotics prior to discharge. On discharge she was instructed to follow-up closely with her PCP and gynecology outpatient.
Discharge Plan
-
Patient Disposition: Home (Routine Discharge)
Discharge Diagnosis/Procedures: Sepsis secondary to possible untreated pyelonephritis
Diet: As tolerated
Activity: As tolerated
Driving Restrictions: As prior to admission
Bathing Restrictions: None
Activity Restrictions/Additional Instructions:
Follow-up with gynecology next week
Referrals:
Jaimie Jones, DO [Family Provider] - in less than 1 week
Prescriptions:
New
acetaminophen 325 mg Tablet
650 mg PO Q4HPRN PRN (Reason: mild pain/RANGEL/temp> 100.4F) Qty: 0 0RF
cefdinir 300 mg capsule
300 mg PO BID Qty: 10 0RF
phenazopyridine [Pyridium] 100 mg tablet
100 mg PO TID Qty: 6 0RF
Probiotic 10 billion cell capsule
10,000 mmu cells PO DAILY Qty: 10 0RF
Continued
fluoxetine 20 MG capsule
60 mg PO DAILY
norgestimate-ethinyl estradiol [Tri-Lo-Dyan] 1 EACH tablet
1 ea PO DAILY
lisdexamfetamine [Vyvanse] 30 MG capsule
40 mg PO DAILY
Discharge Orders:
Discharge Patient (As Directed); Ordered 07/06/24
Ordered By: Bobby Regalado
Discharge Date and Time
Discharge Date/Time: 07/06/24 12:29
Print Language: PAKISTANI
--- NOTE | 2024-07-06 12:18 | CM ---
MD entered order for discharge.
Spoke with pt she said she was ready for discharge .
She said she will drive herself home.
Offered VN she declined need.
PLAn Home no needs
== END 2024-07-06 12:29 | disposition home or self-care (01) | DRG 872 ==
LOC: 3 WEST ACU 23:46
PROVIDERS: Nurse Practitioner Family; Student in an Organized Health Care Education/Training Program; ADMITTING PHYSICIAN Student in an Organized Health Care Education/Training Program; ATTENDING PHYSICIAN Internal Medicine; EMERGENCY PHYSICIAN Emergency Medicine; FAMILY PHYSICIAN Family Medicine
DX: A41.9 Sepsis, unspecified organism (principal); N12 Tubulo-interstitial nephritis, not specified as acute or chronic; F32.A Depression, unspecified; F41.9 Anxiety disorder, unspecified; K76.0 Fatty (change of) liver, not elsewhere classified; Z87.891 Personal history of nicotine dependence
CPT/HCPCS: 76770; 80048; 80053; 81003; 83605; 84703; 85025; 85027; 85379; 87040; 87086; 87147; 87186; 93005; 96361; 96374; 96375; 99285

== ENCOUNTER → 2024-11-17 13:35 | Outpatient (REF) | payer OTHER, SELFPAY | LOC: PAVMRI 13:35 | PROVIDERS: ATTENDING PHYSICIAN Orthopaedic Surgery; FAMILY PHYSICIAN Internal Medicine | DX: M23.92 Unspecified internal derangement of left knee (principal) | CPT/HCPCS: 73721 ==

== ENCOUNTER → 2025-01-22 14:14 | Outpatient (REF) | payer OTHER, SELFPAY | LOC: WDC 14:14 | DX: N63.11 Unspecified lump in the right breast, upper outer quadrant (principal); N63.13 Unspecified lump in the right breast, lower outer quadrant; Z80.3 Family history of malignant neoplasm of breast | CPT/HCPCS: 76642 ==

== ENCOUNTER 2025-01-25 14:17 | Emergency (ER) | payer OTHER, SELFPAY ==
[2025-01-25 14:21] VITALS: BP 115/73
--- NOTE | 2025-01-25 14:43 | ED.GENMED ---
History of Present Illness
General
Chief Complaint: Musculo-Skeletal Complaint
Source: patient
Exam Limitations: none
Time Seen by Provider: 01/25/25 14:31
History of Present Illness
History of Present Illness:
24yo [id number]-ortq-[id number] female with a history of ADHD and depression presenting for evaluation of left shoulder pain. 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
L upper chest. Pain radiated into the left side of her neck and left shoulder. She became worried and called EMS. An EKG was performed which was normal and she was told that she most likely pinched a nerve. Her pain worsens with movement of her
left shoulder and neck. She has not taken anything [id number] for her symptoms. No specific trauma. She is otherwise asymptomatic and denies shortness of breath, cough, vomiting, fevers, abdominal pain.
Past History
Past History
ED Past Medical History: Psychiatric (Anxiety/depression)
ED Past Surgical History: Tonsilectomy
Social History
Tobacco: Former smoker
Alcohol: Occasional
Drug: Marijuana
Personal: Single
Living: with family
Phy Exam
General Physical Exam
General Presentation: well appearing and no apparent distress
General Skin: warm and dry
General Habitus: normal
General Mental: alert
ENT Exam
ENT Exam: normocephalic
Cardiovascular Exam
Cardiovascular Exam: regular rate/rhythm, no edema, no murmur and normal peripheral pulses (2+ radial pulses)
Pulmonary Exam
Pulmonary Exam: lungs clear, no respiratory distress, no rales, no crackles, no rhonchi, no wheezing and other (+Tenderness to L upper chest wall. No crepitus or skin changes.)
Neurological Exam
Neurological Exam: alert
[place] Coma Scale
Eye Opening: Spontaneous
Verbal Response: Oriented
Motor Response: Obeys Commands
GCS Total Score: 15
Musculoskeletal Exam
Musculoskeletal Exam: other (+Tenderness to cervical portion of L trapezius muscle. No tenderness to palpation of L shoulder although ROM of L shoulder is decreased and elicits pain. 2+ radial pulse and sensation intact.)
Skin Exam
Skin Exam: normal color and warm/dry
Psychiatric Exam
Psychiatric Exam: normal mood/affect
Course
Orders/Labs/Results
Orders:
Orders
01/25/25 14:42
Electrocardiogram (*1) Urgent
Reason for Study: Chest Pain
EKG- Treatment ONCE
Ibuprofen [Motrin] 600 mg PO NOW STA
Test Result ONCE
CR Chest - 2 Views Urgent
Comment:
Reason For Exam: L upper chest pain
CR Shoulder - Left Min 2 View* Urgent
Comment:
Reason For Exam: pain
01/25/25 14:57
Beta Hcg Urine Qualitative Screen [HCG, Urine Qualitative Screen] Urgent
Date Specimen was Collected: 01/25/25
Time Specimen was Collected: 14:56
Vital Signs
Initial and Last Documented VS:
Initial Vital Signs
Temp Pulse Resp BP Pulse Ox
98.0 F 85 16 115/73 98
01/25/25 14:21 01/25/25 14:21 01/25/25 14:21 01/25/25 14:21 01/25/25 14:21
Last Documented Vital Signs
Temp Pulse Resp BP Pulse Ox
98.0 F 85 16 115/73 98
01/25/25 14:21 01/25/25 14:21 01/25/25 14:21 01/25/25 14:21 01/25/25 14:45
MDM/Problems Addressed
Differential Diagnosis Includes:
24yoF here with L upper chest/shoulder pain that began while making hoagies at work today. Pain is worse with movement and is reproducible on exam. VSS. Differential diagnosis includes: muscular strain/spasm, cervical radiculopathy, tendonitis,
doubt ACS
Initial ED plan: Check EKG, CXR, and L shoulder x-rays. Ibuprofen for pain.
*Pulse Oximetry
SaO2: 98
Oxygen Mode of Delivery: Room air
Patient hypoxic: no
*EKG
Interpreted by ED Provider?: Yes
EKG Intrepretation Date: 01/25/25
Heart Rate: 77
Rate: normal
Rhythm: sinus
[place]: normal axis
Interval: normal interval
QRS Pattern: normal QRS
Ischemia: no ischemia
*Critical Care Note
Total Time (30-74mins, 75-104mins- exclusive of procedures): Not Applicable
Update Note
Update Note:
EKG shows normal sinus rhythm without ischemic changes. Left shoulder and chest x-rays are normal. Suspect pain is musculoskeletal given that it is clearly reproducible and positional. Supportive care discussed and advised follow-up with PCP. ED
return precautions reviewed and patient discharged stable condition.
ED Attending Note
-
Portions of this chart may have been created with voice recognition software.� Occasional wrong word or��sound alike� substitutions may have occurred due to the inherent limitations of voice recognition software.
Discharge Plan
Departure
Patient Disposition: Home (Routine Discharge)
Date of Disposition: 01/25/25
Time of Disposition: 16:14
Patient with high blood pressure during this ER visit?: No
Discharge Problem:
Left shoulder pain
Instructions: Muscle and Bone Pain (DC)
Prescriptions:
No Action
fluoxetine 20 MG capsule
60 mg PO DAILY
norgestimate-ethinyl estradiol [Tri-Lo-Dyan] 1 EACH tablet
1 ea PO DAILY
lisdexamfetamine [Vyvanse] 30 MG capsule
40 mg PO DAILY
acetaminophen 325 mg Tablet
650 mg PO Q4HPRN PRN (Reason: mild pain/RANGEL/temp> 100.4F) Qty: 0 0RF
cefdinir 300 mg capsule
300 mg PO BID Qty: 10 0RF
phenazopyridine [Pyridium] 100 mg tablet
100 mg PO TID Qty: 6 0RF
Probiotic 10 billion cell capsule
10,000 mmu cells PO DAILY Qty: 10 0RF
Referrals:
Sil Jones DO [Family Provider, Family Practice]
Stand Alone Forms: Return to Work
Activity Restrictions/Additional Instructions:
Apply ice to affected area and rest. Take Tylenol and ibuprofen as needed for pain.
Please follow-up with your family doctor next week. Return to the ER with any new or worsening symptoms.
Interventions
Interventions:
*Risk Screen - Suicide Last Done: 01/25/25 14:21
*Neglect/Abuse Screening Last Done: 01/25/25 14:21
Discharge Date and Time
Print Language: CROATIAN
[2025-01-25 15:12] LABS: HCG, Urine Qualitative Screen Negative
[2025-01-25] MEDS: MOTRIN 600 MG PO (15:33)
[2025-01-25 16:30] VITALS: BP 128/77
== END 2025-01-25 16:30 | disposition home or self-care (01) ==
LOC: EMR 14:17
PROVIDERS: Physician Assistant; EMERGENCY PHYSICIAN Emergency Medicine; FAMILY PHYSICIAN Internal Medicine
DX: M25.512 Pain in left shoulder (principal); M54.2 Cervicalgia; R07.89 Other chest pain; Z87.891 Personal history of nicotine dependence
CPT/HCPCS: 99285; 71046; 73030; 81025; 93005

== ENCOUNTER → 2025-02-03 14:50 | Outpatient (REF) | payer OTHER, SELFPAY | LOC: HWRAD 14:50 | PROVIDERS: ATTENDING PHYSICIAN Internal Medicine | DX: M25.512 Pain in left shoulder (principal); M54.12 Radiculopathy, cervical region | CPT/HCPCS: 72050 ==